=== PATIENT | male | born 1945 | race Caucasian/White ===

== ENCOUNTER 2018-08-05 20:18 | Inpatient (IN) | payer OTHER ==
--- NOTE | 2018-08-05 20:29 | EDPHY ---
H & P Time Seen by Provider: 08/05/18 20:26 HPI/ROS: HPI CHIEF COMPLAINT: Altered mental status. HISTORY OF PRESENT ILLNESS: This is a 73-year-old male, presents emergency room by EMS after was found on somebody's front porch and they were unclear who he was. They contacted police police contacted EMS and EMS evaluated him any appeared to be confused. He states that he thought he was in [place]. He is unable to tell me the year. He does know the president. He is unsure that he was even in [place]. He thought he was in [place]. He cannot explain what he is doing on this person's front porch. Past Medical history: Past Surgical history: His old records here in the emergency room have been reviewed. He has a history of DVT, hypertension, chronic kidney disease, prostate surgery additionally gets dialysis hemodialysis he states Friday in [place]. Here upon arrival to the emergency room I did Greet him, he does appear confused however it is unclear what his baseline is. There is no family at this time. There is no focal neurological deficit on exam. The patient is very pleasant and denies any complaints. ROS REVIEW OF SYSTEMS: Limited due to patient's mental state. Exam Constitutional confused. triage nursing summary reviewed, vital signs reviewed , awake/alert. Eyes normal conjunctivae and sclera, EOMI, PERRLA. HENT normal inspection, atraumatic, moist mucus membranes, no epistaxis, neck supple/ no meningismus, no raccoon eyes. Respiratory clear to auscultation bilaterally, normal breath sounds, no respiratory distress, no wheezing. Cardiovascular rate normal, regular rhythm, no murmur, no edema, distal pulses normal. Gastrointestinal soft, non-tender, no rebound, no guarding, normal bowel sounds, no distension, no pulsatile mass. Genitourinary no CVA tenderness. Musculoskeletal right upper extremity arm AV fistula. no midline vertebral tenderness, full range of motion, no calf swelling, no tenderness of extremities , no meningismus, good pulses, neurovascularly intact. Skin pink, warm, & dry, no rash, skin atraumatic. Neurologic alert and oriented x1., moves all 4 extremities equally, motor intact, sensory intact, CN II-XII intact, normal cerebellar, normal vision, normal speech. Psychiatric normal mood/affect. Heme/Lymph/Immune no lymphadenopathy. Differential Diagnosis: Includes but is not limited to in a particular order electrolyte disturbance, infection, dehydration, intracranial bleed, dementia Medical Decision Making: Plan for this patient will try to get contact with his daughter. CT scan head without contrast, basic blood work, electrolytes, and re-evaluate. Re-evaluation: CT scan head without contrast negative for acute bleed. Significant atrophy present. No bleed. Patient's blood work reviewed. Patient has a hemodialysis patient with creatinine 3.1 K is normal. It is noted the patient's troponin is elevated. The patient denies any chest pain or shortness of breath. EKG will be obtained due to elevated truck. The truck may be elevated due to end-stage renal disease. 2129: The daughter is at bedside. She reports that he is not typically this confused and this is a new change in his mental status over the past 2 weeks however this is the worst that she seen him. He is typically not like this. Due to this the plan will be for admission for altered mental status. Daughter reports that is not typically have any dementia. I spoke with the hospitalist 2129 Dr. Whelan Who agrees to admit Updated family/patient. agree for admission. Observation overnight. 2138: Given the patient had elevated troponin EKG was obtain at time 9:34 p.m.. The patient had no chest pain or shortness of breath and no chest complaints. He was here for confusion. Unfortunately his EKG does show an ST elevation MO with acute STEMI in V2 V3 V4 V5. This considering a LAD occlusion or an anterior ST-elevation MO. I do not see reciprocal significant ST depression. After seeing this EKG is elevated troponin I did go and asked him again if he was having any chest pain or shortness of breath and again he denies this. He is resting comfortably. He states he has no complaints but is noted that he is confused. Given his EKG indicating an ST elevation MO the cardiac catheterization team is been activated. Interventional cardiology has been activated. The patient received full-dose aspirin, nitroglycerin, morphine, 2 large-bore IVs, patient be prepped for cardiac catheterization. Of note this patient arrived to the emergency room for confusion. Had no chest pain or shortness of breath. An EKG was obtained due to the elevated troponin in the setting of a dialysis patient. The patient's EKG concerning for ST elevation. After reviewing this EKG I did re-evaluate him and he again complains of no chest pain or shortness of breath. Plan for cardiac catheterization. Updated patient he agrees. Updated family and they agree. Critical Care: Total Critical Care Time Spent Managing this Patient: 65 Minutes. This time was spent Exclusively with this patient. This Care was exclusive of procedures. The Organ System/life at risk was STEMI This Patient was in Critical Condition because STEMI 2204: Dr. Torrez here to evaluate patient. 2229: We were able to obtain an EKG from [facility] with has a very similar morphology with this ST elevation in V2 V3 V4 V5 with Q-waves. This is indicating this is most likely an old ST elevation MO. Given the EKG is very similar to the previous EKG Dr. Torrez has evaluated the patient at bedside. The patient again does not have chest pain or shortness of breath. Given the EKG is similar to previous EKG he may not go to cardiac catheterization emergently. This may be an old infarct. 7: Spoke with Dr. Torrez, he has seen and evaluated patient. Does not feel the patient needs to go emergently to botany laboratory assistant for ST elevation MO. This has anterior Q-waves concerning for older involving infarct. The patient has no chest pain. He would like the patient admitted the hospital service, serial cardiac markers , echocardiogram. Close telemetry monitoring overnight. Additionally the patient is confused will continue work up. Spoke with the hospitalist service Dr. Morales. Agrees to admit. At this time no indication for emergent cardiac catheterization. Patient is not having chest pain. ST-elevation appears to be old. With Q-waves. Cardiology consult Echocardiogram stat pending. Recommend serial troponins. Recommend telemetry monitoring. Updated family agree with plan. Source: Patient, EMS - Medical/Surgical History Hx Diabetes: No - Social History Smoking Status: Never smoked Constitutional: Initial Vital Signs Temperature (C) 37 C 08/05/18 20:31 Heart Rate 106 H 08/05/18 20:31 Respiratory Rate 18 08/05/18 20:31 Blood Pressure 138/90 H 08/05/18 20:31 O2 Sat (%) 95 08/05/18 20:31 O2 Delivery Mode Room Air Allergies/Adverse Reactions: No Known Allergies Allergy (Verified 08/06/18 09:46) Home Medications: Medication Instructions Recorded Gabapentin [Neurontin 100 MG (*)] 100 mg PO HS PRN 08/06/18 amLODIPine BESYLATE [Norvasc 5 mg 5 mg PO DAILY 08/06/18 (*)] Medical Decision Making - Data Points Laboratory Results: Laboratory Results 08/05/18 20:25 08/05/18 20:25 Medications Given: Heparin Sodium (Porcine) (Heparin Injection) 0 unit IVP PRN PRN PRN Reason: re-Boluses required by protcol Stop: 02/02/19 10:51 Last Admin: 08/06/18 14:37 Dose: 5,000 units Ceftriaxone Sodium/Dextrose (Rocephin 1 Gm (Premix)) 50 mls @ 100 mls/hr IV DAILY MAGGI PRN Reason: Protocol Stop: 09/05/18 08:59 Last Admin: 08/06/18 08:07 Dose: 50 mls Heparin Sodium (Porcine) (Heparin 50 Units/Ml (Premix)) 500 mls @ 0 mls/hr IV CONT MAGGI; Per Protocol PRN Reason: Protocol Stop: 02/02/19 10:59 Last Admin: 08/06/18 14:38 Dose: 500 mls Nitroglycerin (Nitro-Bid 2%) 1 inch TP Q6H MAGGI Stop: 02/02/19 14:59 Last Admin: 08/06/18 15:56 Dose: 1 inch Discontinued Medications Amlodipine Besylate (Norvasc) 5 mg PO DAILY [facility] Stop: 02/02/19 11:14 Last Admin: 08/06/18 14:38 Dose: Not Given Aspirin (Aspirin) 325 mg PO EDNOW ONE Stop: 08/05/18 22:10 Last Admin: 08/05/18 22:10 Dose: 325 mg Aspirin Buffered (Aspirin Ec) 325 mg PO ONCALL ONE Stop: 08/06/18 12:02 Last Admin: 08/06/18 12:18 Dose: 325 mg Diazepam (Valium) 5 mg PO ONCALL ONE Stop: 08/06/18 12:02 Last Admin: 08/06/18 14:01 Dose: Not Given Diphenhydramine HCl (Benadryl) 25 mg PO ONCALL ONE Stop: 08/06/18 12:02 Last Admin: 08/06/18 12:18 Dose: 25 mg Famotidine (Pepcid) 20 mg PO ONCALL ONE Stop: 08/06/18 12:02 Last Admin: 08/06/18 12:18 Dose: 20 mg Heparin Sodium (Porcine) (Heparin Sc Injection) 5,000 unit SC Q8 MAGGI Stop: 02/02/19 05:59 Last Admin: 08/06/18 06:09 Dose: 5,000 unit Nitroglycerin (Nitrostat) 0.4 mg SL ONCE ONE Stop: 08/05/18 22:10 Last Admin: 08/05/18 21:55 Dose: 0.4 mg Potassium Chloride (Potassium Chloride Oral Liquid) 20 meq PO ONCE ONE Stop: 08/05/18 23:11 Last Admin: 08/06/18 01:54 Dose: Not Given Potassium Chloride (Klor-Con) 40 meq PO ONCE ONE Stop: 08/06/18 06:01 Last Admin: 08/06/18 06:09 Dose: 40 meq Point of Care Test Results: Chemistry 08/05/18 21:09 POC Troponin I 1.13 ng/mL H ng/mL (0.00-0.08) Departure - Departure Disposition: [facility] Acute Clinical Impression: Elevated troponin Altered mental status Qualifiers: Altered mental status type: unspecified Qualified Code(s): R41.82 - Altered mental status, unspecified Condition: Serious
[2018-08-05 20:39] LABS: PLATELET COUNT 340 10^3/uL (150-400)
[2018-08-05] MEDS ORDERED: ASPIRIN 325 MG TAB ONE (21:48)
[2018-08-05] MEDS ORDERED: NITROGLYCERIN 0.4 MG BTL SL ONE ×2 (21:49→22:09)
[2018-08-05] MEDS ORDERED: ASPIRIN 325 MG TAB PO ONE (22:09)
[2018-08-05] MEDS ORDERED: IOPAMIDOL (ISOVUE-370) 150 ML BTL IV ONE (22:10)
[2018-08-05] MEDS ORDERED: MIDAZOLAM 2 MG/2 ML VIAL ONE (22:10)
[2018-08-05] MEDS ORDERED: fentaNYL 100 MCG/2 ML INJ ONE (22:10)
[2018-08-05] MEDS ORDERED: LIDOCAINE 1% 300 MG/30 ML SDV ONE (22:10)
[2018-08-05] MEDS ORDERED: ATROPINE SULFATE 1 MG/10 ML SYR ONE (22:13)
[2018-08-05] MEDS ORDERED: EPINEPHrine 1 MG/10 ML SYR IVP ONE (22:13)
[2018-08-05] MEDS ORDERED: BIVALIRUDIN 250 MG/5 ML VIAL IV ONE (22:13)
[2018-08-05] MEDS ORDERED: ONDANSETRON DISINTEGRATING 4 MG TAB PO PRN (23:06)
[2018-08-05] MEDS ORDERED: ACETAMINOPHEN 325 MG TAB PO PRN (23:06)
[2018-08-05] MEDS ORDERED: ONDANSETRON 4 MG/2 ML VIAL IVP PRN (23:06)
[2018-08-05] MEDS ORDERED: POTASSIUM CL 20 MEQ/15 ML UDCUP PO ONE (23:10)
[2018-08-06] MEDS ORDERED: ALBUTEROL 3 ML DEYVIAL IH PRN (01:45)
--- NOTE | 2018-08-06 02:12 | HOSPPROG ---
Hospitalist Progress Note Assessment/Plan: Hospitalist night float note Notified by RN regarding patient slightly declined H&H. Chart was briefly reviewed and case was discussed at sign out with Dr. Campbell. 73-year-old gentleman presents with fatigue and dyspnea found to have hyper leukocytosis and severe anemia. 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 He was seen in the emergency department by correctional officer lieutenant Dr. Carvalho. As reported to me patient had a discussion with Dr. Carvalho regarding findings of warm antibodies on type and screen and option for on cross match blood. Patient remains normotensive and mildly tachycardic. He did have a episode of tachycardia to the 140s while standing to void at bedside. Send out pending with [facility] and notified that units of blood will still be several hours out. I went to bedside to discuss status of blood and repeat hemoglobin with patient and his . They would prefer to wait so long as patient remains stable for the appropriate type and cross blood. Will monitor patient's telemetry status closely as well as vital signs. Objective: Vital Signs Temp Pulse Resp BP Pulse Ox 37 C 89 16 122/70 H 96 08/05/18 20:31 08/05/18 23:25 08/05/18 23:25 08/05/18 23:25 08/05/18 23:25 08/04/18 08/05/18 08/06/18 05:59 05:59 05:59 Output Total 750 Balance -750 ICD10 Worksheet Patient Problems: Problems Problem Status Onset Altered mental status Acute Elevated troponin Acute
--- NOTE | 2018-08-06 03:00 | GHP ---
DATE OF ADMISSION: 08/05/2018 SOURCE: Patient provides history, is a fair historian. EMR was reviewed, and case discussed with ED provider as well as Dr. Torrez of Cardiology. CHIEF COMPLAINT: Confusion. HISTORY OF PRESENT ILLNESS: This is a pleasant 73-year-old gentleman with past medical history significant for CKD stage 5, on dialysis Friday, Friday, Friday; HTN; BRETT on CPAP; history of CHF and CAD; asthma; history of prostate cancer status post prostatectomy who presents to the emergency department today after law enforcement was called as patient was found on a stranger's front porch. Police subsequently contacted EMS as patient appeared quite confused. He was not sure where he was or how he arrived there. He thought he was in [place] at the time where he lives. By report from the ED provider, patient's daughter recently moved in with him to assist him with his ADLs. Apparently, patient had been having some memory deficits, progressively worsening over the last 2 weeks that the daughter reported. Patient denies any recent head injuries known. He reports he has had some ongoing difficulties remembering names, but denies losing track of items or feeling as though he has lost chunks of time. He denies any headache, changes in vision, numbness, tingling, or focal deficits. Patient denies any chest pain, shortness of breath, fevers, chills, or any other complaints. Patient does undergo dialysis Friday, Friday, Friday. His current technical support coordinator is Dr. Lemon. He was previously followed by Dr. Bhakta. He denies any lower extremity edema, weight changes, or shortness of breath. Per review of outside records from [place], patient was admitted in January of 2018 for complaints of dyspnea. He was found to have fluid overload. Additionally, patient was noted to have elevated troponin, underwent echocardiogram that was consistent with an anterior apical infarct as well as noted some ST elevations at that time. It was felt that his troponin elevation was related to volume overload, CHF, pulmonary edema; however, there was no commentary in available records regarding the ST-elevation or cardiology consult. He did undergo an echocardiogram that showed an EF of 30% to 35% with thinning and akinesis in apex, apical septal segments consistent with old infarct, and a grade 1 diastolic dysfunction. REVIEW OF SYSTEMS: 10 systems reviewed. SYSTEM REVIEW: Patient complains of some urinary retention for which he straight caths intermittently. He is still able to void and does make urine daily. Remainder of 10 systems negative , except as above. ALLERGIES: No known drug allergies. HOME MEDICATIONS: As per EMR as patient does not recall. Amlodipine 2.5 mg p.o. daily. Sodium bicarb 650 mg p.o. b.i.d. Fish oil 1000 mg p.o. daily. [place] 5/325 one to two tabs p.o. q.6 hours p.r.n. Gabapentin listed 400 mg p.o. at h.s. Lasix 40 mg p.o. Friday, Friday, Friday. Vitamin D 2000 units p.o. daily. Valium 10 mg p.o. q.6 hours p.r.n. Zyrtec 10 mg p.o. daily. Coreg 6.25 mg p.o. b.i.d. with meals. Calcitriol 0.25 mcg p.o. Friday, Friday, Friday. PAST MEDICAL HISTORY: Reviewed with patient as well as review of available outside records. Significant for CKD stage 5 on dialysis Friday, Friday, Friday; benign essential hypertension; asthma; hard of hearing with requirement for hearing aids; history of prostate cancer, status post prostatectomy, now with intermittent urinary retention; BRETT on CPAP; CHF with EF of 30%; DVT; history of CAD. PAST SURGICAL HISTORY: Significant for prostate surgery, hernia, AV fistula in the right arm, cholecystectomy, appendectomy with lysis of adhesion, history of pelvic abscess drainage. FAMILY HISTORY: Patient reports his mother and father in their mid 90s and healthy. Denies any known diabetes, dementia. Does not know medical history of his siblings. 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 He lives at home, now with his daughter. He does not smoke or utilize any illicit drugs or marijuana. He reports rare alcohol intake. COR STATUS: At this time is full. PHYSICAL EXAM: VITAL SIGNS UPON ARRIVAL TO THE EMERGENCY DEPARTMENT: Blood pressure 138/90, heart rate 106, respiratory rate 18, O2 sat 95% on room air, temperature of 37. CURRENT VITALS AVAILABLE: Blood pressure 122/70, heart rate 89, respiratory rate 16, O2 sat 96% on room air. GENERAL: No acute distress. Pleasant, elderly adult gentleman is lying quietly in bed. HEAD: Normocephalic, atraumatic. EYES: Extraocular muscles are grossly intact. Pupils equal, round, decreased reactivity to light bilaterally but symmetric. No scleral icterus or conjunctival injection. ENT: Mucous membranes appear slightly dry. No oropharyngeal erythema or exudates. Dentition in fair condition. NECK: Supple. Trachea midline. CV: Regular rate and rhythm. Patient has a 2/6 to 3/6 systolic murmur. RESPIRATORY: Lungs are clear to auscultation bilaterally. Bases slightly diminished with decreased inspiratory effort. No wheezes, rales, or rhonchi appreciated. ABDOMEN: Obese, soft, nontender to palpation. No rebound, guarding, or masses appreciated. Patient has multiple surgical scars that are well healed. Positive bowel sounds. Nondistended. : Normal external male genitalia. No Prather catheter in place. No suprapubic tenderness to palpation. EXTREMITIES: No cyanosis, clubbing, or edema is appreciated. Patient has chronic lower extremity skin changes present. 1+ pedal pulses bilaterally and symmetric. NEURO: Grossly nonfocal. No facial drooping. Cranial nerves 2 through 12 intact and symmetric bilaterally. Patient awake, alert, and oriented to person and place at this time. He is not oriented to date or month. He is oriented to current president but does require some time to think who the most recent president is. The patient notes that he does not recall events leading up to his hospital stay at this time. PSYCH: Patient is pleasant. He is cooperative. He does have some memory deficits, and when asked various questions, and he is not aware of the immediate answer, patient will try to change the subject. He is otherwise not agitated and cooperative. In good spirits. LABORATORY STUDIES: WBC 9.51, H and H are 12.3 and 37.4, MCV 89.3, platelet count of 340, neutrophil percent 78.0. VBG: Lactic acid 1.2. Sodium is 138, potassium 3.2, chloride 94, CO2 is 30, anion gap 14, BUN 16, creatinine 3.1, estimated GFR 20, glucose 113, calcium is 9.6, phosphorus 2.7, magnesium 1.7. Tejcd-rn-bydi troponin is 1.13. TSH is 0.375. Tox screen: Alcohol is less than 10. UA and U-tox are pending. EKG was reviewed by me. Sinus tach in the 100s. QTc 458. Patient with ST elevations in V3, 4, 5 and 6. Q-waves in the anterior leads. LVH. Nonspecific T-wave changes in the inferior leads. CT head showing moderately advanced senescent features. No acute intracranial abnormality identified. Complete opacification left maxillary sinus. Chest x- ray: Mild cardiomegaly with peribronchial thickening and left basilar subsegmental atelectasis versus a minimal infiltrate. ASSESSMENT AND PLAN: Pleasant 73-year-old gentleman with a history of chronic kidney disease 5 on hemodialysis Friday, Friday, Friday; asthma; hypertension ; obstructive sleep apnea; congestive heart failure with ejection fraction of 30 %; deep venous thrombosis; history of evidence of infarct who presents to the emergency department today with confusion. 1. Altered mental status. Will need to further discuss with patient's family tomorrow. Given available data, potential for progressive memory loss and dementia versus less likely an acute encephalopathy due to metabolic reasons. Laboratory studies at this time do not indicate any infectious process, but there is a UA pending as well as a U-tox pending. No evidence of focal deficits consistent with acute cerebrovascular accident. Patient's neurologic exam at this time is within normal limits, except for his memory deficits. Will request Speech Therapy assist with a cognitive evaluation. Patient is a little tangential and does try to change the subject when it appears he is asked questions he is not able to answer. Patient's home medicine list does note gabapentin, Valium, which potentially could be contributing to some confusion, so will hold off on any potential sedatives. Additionally, patient' s EKG changes and elevated troponin appear to be chronic in nature. Case was discussed with Dr. Torrez with cardiology service. Will plan to repeat laboratory studies in the morning. Follow up on TFTs. Patient without any focal deficits. Consider additional brain imaging tomorrow as per day team pending reassessment of laboratories and examination. 2. Elevated troponin and ST elevations, which appear to be chronic by review of previous records. Patient denies any chest pain or dyspnea. Will plan to trend enzymes. I discussed with Dr. Torrez. Patient did undergo a stat echocardiogram in the emergency department. Ejection fraction is reported to appear to be slightly decreased from that completed in January, and similarly noted anteroapical infarct and wall motion abnormalities appear are persistent, without any acute changes noted. 3. Hypokalemia, mildly decreased. Patient's home medication list notes Lasix. Will hold off on diuretics for now. Patient will receive oral replacement. 4. Low TSH, slightly diminished. Will check T3, T4. 5. Anemia, likely related to chronic kidney disease. Patient without any evidence of active bleeding. Will continue to monitor. 6. Chronic medical issues: a. Chronic kidney disease stage 5. Patient just underwent dialysis in the morning. If he should stay additional length of time, further discussion with Nephrology for consultation. Will monitor patient's laboratory studies in the morning and electrolyte panel. b. Benign essential hypertension. Blood pressures at this time are stable. Will need to verify patient's home medication list and can resume. c. Obstructive sleep apnea on continuous positive airway pressure. Will need to clarify continuous positive airway pressure usage. Nocturnal oxygen for tonight. d. Asthma without exacerbation. Albuterol as needed. e. Hard of hearing. Patient reports he forgot his hearing aids. It does make interviewing slightly difficult but will see if family can bring the patient's hearing aids. f. Systolic and diastolic congestive heart failure with ejection fraction of less than 30%. Does not appear decompensated at this time. Will monitor patient's fluid status closely. He received 500 cc of fluid in the emergency department. Will hold off additional intravenous fluids. Patient does continue to make urine, so will monitor fluids, in and out status closely. g. History of deep venous thrombosis. Patient will be placed on heparin while hospitalized. h. Chronic urinary retention. Patient's postvoid residual is greater than 400. Patient does report that he straight caths. He is able to void. Straight cath as needed. 7. Fluids, electrolytes, and nutrition: Saline lock intravenous, status post 500 cc in the emergency department. Electrolyte monitoring as noted above. Renal diet ordered. 8. Prophylaxis: Heparin. Sequential compression devices as tolerated. 9. COR status: Full. 10. Disposition: Patient admitted to observation status to the PCU in ICU overflow for additional monitoring, repeat laboratory studies, and workup of patient's confusion. /[id number]/MODL MTDD
[2018-08-06 05:15] LABS: PLATELET COUNT 276 10^3/uL (150-400)
[2018-08-06 05:27] LABS: CREATINE KINASE 75 IU/L (0-224)
[2018-08-06] MEDS ORDERED: HEPARIN 5,000 UNIT/0.5 ML INJ SC SCH (06:00)
[2018-08-06] MEDS ORDERED: POTASSIUM CL 20 MEQ TAB PO ONE (06:00)
--- NOTE | 2018-08-06 08:25 | GCON ---
DATE OF CONSULTATION: 08/05/2018 REFERRING PHYSICIAN: Ramesh Medellin MD CHIEF COMPLAINT: We have been asked by Dr. Medellin to evaluate the patient as a cardiac alert. HISTORY OF PRESENT ILLNESS: History of present illness is obtained from the patient, the patient's d aughter, and the medical record. The patient is a limited historian with short-term memory loss and acute confusion. The patient's daughter has been living with him for the last month and is aware of his recent medical history; however, prior to this time, patient was not actively involved in his med [facility] care. The patient's medical record is somewhat limited as most of his medical care has taken pl linh in the outpatient setting, as well as at [facility]. Patient was found at a local residence sitting on the porch. The residents of the house did not recognize the patient and called police. When please arrive, they found him to be acutely confused and called EMS. EMS brought the p atient to the emergency department for further evaluation. In the emergency department, workup for acute delirium was initiated. Lab work was performed demonst rating a mildly elevated troponin, and this subsequently triggered an EKG demonstrating an anterosept al myocardial infarction with ST-segment elevations in leads V2 through V5. We are consulted to help in the further management of the patient. In talking with the patient, he denies symptoms of chest pain, shortness of breath, orthopnea, and PN D. There are no symptoms of palpitations, syncope, or presyncope. We were able to obtain an old EKG from [facility] dated 02/02/2018. That EKG demonstrated an anteroseptal [place] with ST-se gment elevation in leads V2 through V5. Echocardiogram from that time demonstrated an old anterosept al myocardial infarction with an ejection fraction of 30% to 35%. PAST MEDICAL HISTORY: 1. DVT. 2. Hypertension. 3. Chronic kidney disease. 4. Prostate surgery. 5. Hemodialysis catheter placement. MEDICATIONS: 1. Norvasc 5 mg daily. 2. Calcitriol 0.25 mcg daily. 3. Coreg 6.25 mg b.i.d. 4. Vitamin D3 2000 units daily. 5. Fish oil. 6. ProAir. 7. Sodium bicarbonate 1300 mg daily. ALLERGIES: No known drug allergies. 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 He is currently living wit h his daughter for the last month. He does not smoke and denies problems with alcohol. FAMILY HISTORY: Noncontributory. REVIEW OF SYSTEMS: Somewhat limited given patient's altered mental status. Family reports increased sleep and increased confusion over the last 2 weeks. The patient has noted to have had chills, but no other specific complaints noted. PHYSICAL EXAMINATION: GENERAL: The patient is resting in bed. He does not appear to be in acute di stress. VITAL SIGNS: Temperature is afebrile. Pulse is 95, blood pressure 128/75, respiratory rate is 15, SaO2 is 96% on 2 L nasal cannula. HEENT: Normocephalic, atraumatic. Extraocular muscles in tact. NECK: Positive JVD. No bruits. LUNGS: Clear to auscultation bilaterally. CARDIOVASCULAR: Regular rate and rhythm. S1, S2. Grade 3/6 holosystolic murmur is noted at the left sternal border . ABDOMEN: Soft, nontender. Normoactive bowel sounds. No hepatosplenomegaly noted. Aorta could n ot be adequately palpated. EXTREMITIES: No clubbing, cyanosis, or edema. SKIN: There is evidence of stasis changes on the pretibial surface. NEURO: Patient is disoriented to place and time. DIAGNOSTIC DATA: White blood cell count is mildly elevated at 9.51, hemoglobin is 12.3, hematocrit i s 37.4, platelet count is 340. Sodium 138, potassium 3.2, chloride 94, CO2 is 30, BUN 16, creatinine 3.1, glucose is elevated at 113. [id number] troponin is 1.13. EKG demonstrates sinus rhythm, left atrial enlargement, anteroseptal infarct with evidence of aneurys mal formation. ASSESSMENT/PLAN: The patient is a 73-year-old gentleman with: 1. Acute delirium. Patient presents with acute delirium. The etiology of his delirium is not entir huan clear at this time. Will defer further workup to the hospitalist service. 2. Elevated troponin. The patient has a history of a previous anteroseptal myocardial infarction by EKG, as well as echocardiogram. His current EKG is not significantly changed from previous. His tr oponin is mildly elevated at 1.13; however, patient denies symptoms consistent with angina at this ti me. Would favor a more conservative approach in this setting. We will plan on obtaining an echocard iogram, as well as serial cardiac enzymes, and following the patient. If he were to deteriorate or d evelop symptoms consistent with angina, would consider cardiac catheterization. /[id number]/MODL
[2018-08-06] MEDS ORDERED: HEPARIN/DEXTROSE 500 ML IV SCH (09:30)
[2018-08-06] MEDS ORDERED: HEPARIN 10,000 UNIT/10 ML MDV (1,000 UNIT/ML) IVP PRN (09:30)
--- NOTE | 2018-08-06 11:07 | HOSPPROG ---
Hospitalist Progress Note Assessment/Plan: DIAGNOSES: * ST-elevation myocardial infarction * acute hypotension, resolved; unclear if this was due to dialysis or due to his heart episode * acute confusional episode of delirium, resolved * pyuria, uncertain if this represents infection or other inflammatory process * end-stage renal disease on dialysis * anemia of renal disease This patient has acute elevation of troponin from 1-4 overnight, CPK is elevated with positive MB fraction, any presented with acute confusion and hypotension. This could all be an acute coronary syndrome event, could be potentially related to hypotension either from dialysis or less likely urinary infection, leading to both confusion and myocardial injury in the setting of underlying coronary disease. Either way I recommended to the patient that he have angiography to further assess his coronaries as well as echocardiogram to assess his aortic valve. I reviewed these with Dr. Shane Ring who will see the patient today. The patient initially was quite resistant to these ideas in fact was stating he was going to leave the hospital AMA, but I spent extended time at the bedside with the patient reviewing our findings and the risk of further myocardial injury with heart failure stroke or other consequences. PLANS: * Continue NPO for the moment * Dr. Ring will see the patient regarding coronary angiography * Echocardiogram * Avoid medications with significant MEDICAL COMMUNICATION SPECIALIST side effects Patient seen by me today on hospitals rounds as well as multidisciplinary rounds. I reviewed the patient's situation in detail today with doctors Shane Ring and Geovany Judge I spent greater than 45 min at the bedside today with the patient on my 1st visit and anticipate subsequent visits later in the day today SUBJECTIVE: Patient denies any chest pain this morning States he feels comfortable overall OBJECTIVE Vitals reviewed: Blood pressure is notably improved, stable pulse respirations and normal temperature is Land Manager, my review: Sinus rhythm Exam: alert oriented with much better mentation today, able to carry out very normal conversation skin warm dry color ok resps not labored lungs clear BSs heart regular abd soft nondistended nontender, bowel sounds present limbs warm, no edema iv site ok Lab data: Troponin now elevated to greater than 4; CK-MB positive Basic met panel with creatinine at 3.5 but good electrolytes and is not acidotic White blood cell count improved, hemoglobin at 10 which I presume is chronic related to his end-stage renal disease Microbiology data: Urine culture pending with no growth to date I reviewed the patient's EKG from the ER which shows sinus rhythm and with severe acute ST segment elevations anterior lateral chest leads Objective: Vital Signs Temp Pulse Resp BP Pulse Ox 37 C 89 12 121/78 H 97 08/05/18 20:31 08/06/18 10:00 08/06/18 10:00 08/06/18 10:00 08/06/18 10:00 Laboratory Results 08/06/18 04:45 08/06/18 04:45 08/05/18 08/06/18 08/07/18 06:59 06:59 06:59 Intake Total 100 Output Total 750 Balance -650 ICD10 Worksheet Patient Problems: Problems Problem Status Onset Altered mental status Acute Elevated troponin Acute
[2018-08-06] MEDS ORDERED: GABAPENTIN 100 MG CAP PO PRN (11:15)
[2018-08-06] MEDS ORDERED: amLODIPine BESYLATE 5 MG TAB PO SCH (11:15)
--- NOTE | 2018-08-06 11:20 | ECHO ---
[email or web address] [address] [address] Main: [phone] Fax: Transthoracic Echocardiogram Name: SHERRY GREY MR#: [id number] Study Date: 08/05/2018 Study Time: 11:10 PM Date of : 1945 Age: 73 year(s) Height: 182.9 cm (72 in.) Weight: 84.82 kg (187 lb.) BSA: 2.07 m2 Gender: Male Examination: Echo Indication: stat stemi v renal Image Quality: Adequate Contrast: Requested by: Ramesh Garcia BP: / Heart Rate: Rhythm: Indication: stat stemi v renal Procedure Staff Rug Cleaner: Cat Hernandez [facility] Reading Physician: Requesting Provider: Conclusions: Dilated left ventricle. Concentric LV hypertrophy. The ejection fraction is visually estimated to be 20 %. Regional wall motion abnormality noted. Reduced LV function. Apical, septal, anterior, inferior hypokinesis. Normal RV function. Mitral regurgitation may be mild to moderate - eccentric jet. Mild aortic valve regurgitation is present. Mild calcific aortic valve stenosis. Mild to moderate tricuspid valve regurgitation. The pulmonary artery pressure is moderately to severely increased. Right ventricular systolic pressure measures 59mmHg. There is no previous echocardiogram for comparison. Measurements: Chambers Valvular Assessment AV/MV Valvular Assessment TV/PV Normal Normal Normal Name Value Range Name Value Range Name Value Range Ao Mere (2D): 3.7 cm (1.4 cm-2.6 AV Vmax: 2.54 m/s (1 m/s-1.7 TR Vmax: 3.69 mm/s ( - ) cm) m/s) TR PGmax: 54 mmHg ( - ) IVSd (2D): 1.7 cm (0.6 cm-1.1 AV maxP mmHg ( - ) syst. PAP: 59 mmHg ( - ) cm) AV meanP mmHg ( - ) PV Vmax: 0.60 m/s (0.6 m/s-0.9 LVDd (2D): 5.5 cm (4.2 cm-5.9 LVOT Vmax: 0.74 m/s (0.7 m/s-1.1 m/s) cm) m/s) PV PGmax: 1 mmHg ( - ) LVDs (2D): 4.5 cm (2.1 cm-4 JOLIE (Vmax): 1.2 cm2 ( - ) cm) JOLIE (VTI): 1.1 cm ( - ) LVPWd (2D): 1.5 cm (0.6 cm-1 MV E Vmax: 0.85 m/s ( - ) cm) MV A Vmax: 1.01 m/s ( - ) LVOTd 2.3 cm 2.3 cm mm MV E/A: 0.84 ( - ) LVEF (BP): 20 % (>=55 %) MV PHT: 0.045 s ( - ) Patient: SHERRY GREY Study Date: 08/05/2018 Page 1 of 2 11:10 PM Visual EF: 20 % MVA (PHT): 4.9 s ( - ) Continued Measurements: Chambers Valvular Assessment AV/MV Valvular Assessment TV/PV Name Value Name Value Name Value LADs: 3.8 cm MV DecTime: 151 m/s CVP (est.): 5 mmHg LADs Lon.3 cm MV E/E' Septal: 12.90 LA Area: 27.2 cm2 MV E/E' Lateral: 8.90 LA Volume: 76 ml LA Volume Index: 36.7 ml/m2 RA Area: 17.0 cm2 Additional Vessels Name Value Ao Ascendin.1 cm Inferior Vena Cava: 1.5 cm Findings: Left Ventricle: Dilated left ventricle. Concentric LV hypertrophy. The ejection fraction is visually estimated to be 20 %. Regional wall motion abnormality noted. Grade 2 diastolic dysfunction (pseudonormalized LV filling pattern). Reduced LV function. Apical, septal, anterior, inferior hypokinesis. Right Ventricle: Normal size right ventricle. Normal RV function. Left Atrium: The left atrium is mildly dilated. Right Atrium: The right atrium is normal in size. Mitral Valve: The mitral valve is normal in appearance and function. Mild mitral valve leaflet calcification is present. Mitral regurgitation may be mild to moderate - eccentric jet. Aortic Valve: The aortic valve is tri-leaflet. Aortic sclerosis is present. Mild aortic valve regurgitation is present. Mild calcific aortic valve stenosis. Tricuspid Valve: The tricuspid valve is normal in appearance and function. Mild to moderate tricuspid valve regurgitation. The pulmonary artery pressure is moderately to severely increased. Right ventricular systolic pressure measures 59mmHg. Pulmonic Valve: The pulmonic valve is normal in appearance and function. There is no pulmonic regurgitation seen. Aorta: The aorta is normal. Normal size aortic root measuring 3.7 cm. Normal size ascending aorta measuring 3.1 cm. IVC: The IVC is normal sized. Pericardium: No pericardial effusion. No pleural effusion. (No Signature Object) Patient: SHERRY GREY Study Date: 08/05/2018 Page 2 of 2 11:10 PM [id number]
[2018-08-06 11:21] LABS: PLATELET COUNT 265 10^3/uL (150-400)
[2018-08-06] MEDS ORDERED: LIDOCAINE 1% 300 MG/30 ML SDV ONE (11:38)
[2018-08-06] MEDS ORDERED: fentaNYL 100 MCG/2 ML INJ ONE ×2 (11:38→12:59)
[2018-08-06 11:39] LABS: INR 1.23 (0.83-1.16); PROTIME(PATIENT) 15.7 SEC (12.0-15.0)
[2018-08-06] MEDS ORDERED: IOPAMIDOL (ISOVUE-370) 150 ML BTL IV ONE (11:39)
[2018-08-06] MEDS ORDERED: MIDAZOLAM 2 MG/2 ML VIAL ONE (11:39)
[2018-08-06 11:42] LABS: CREATINE KINASE 76 IU/L (0-224)
--- NOTE | 2018-08-06 11:43 | SOAPPROG ---
[facility] Progress Note Assessment/Plan: Assessment: 1. Ischemic cardiomyopathy. Patient it appears has had an old myocardial infarction in the past however this may have been a recent event as well. He he is asymptomatic and otherwise feeling well he continues to have ST- elevation. This point discussed our options conservative versus invasive therapy is agreed to invasive therapy cardiac catheterization and possible PCI will be done this afternoon. The Dr. Judge nephrology is aware. Patient is not having ongoing symptoms at this time. 2. Chronic renal insufficiency patient on dialysis for last 4-6 months. Apparently is doing well at dialysis. Plan: 1. Cardiac catheterization with possible PCI. Consent to be signed. 08/06/18 11:43 Subjective: Patient is doing better today. I reviewed the findings of last evening with the patient and Dr. Torrez. Echocardiogram shows and ischemic cardiomyopathy. Apparently has had an old anterior infarct by reports I have not seen the actual echoes from [place] from earlier this spring. Nonetheless his troponin is for he feels well today he is not having ongoing chest pain palpitations syncope. At this point we discussed our options of conservative versus invasive management. After talked about the procedure risks, patient has agreed to progress with coronary angiogram if necessary PCI. This was all discussed with Dr. Judge the acid dumper will be covering as well. Patient remains asymptomatic as far as chest pain palpitations syncope. At least to me patient denies any known history of prior cardiac cast stents or bypasses. Objective: Vital Signs Temp Pulse Resp BP Pulse Ox 37 C 89 12 121/78 H 97 08/05/18 20:31 08/06/18 10:00 08/06/18 10:00 08/06/18 10:00 08/06/18 10:00 Laboratory Results 08/06/18 11:12 08/06/18 04:45 08/05/18 08/06/18 08/07/18 05:59 05:59 05:59 Intake Total 100 Output Total 750 Balance -650 PT 15.7 SEC (12.0-15.0) H 08/06/18 11:12 INR 1.23 (0.83-1.16) H 08/06/18 11:12 Physical Exam - Physical Exam Respiratory: lungs clear Cardiac/Chest: normal peripheral pulses, systolic murmur, No edema, No JVD ICD10 Worksheet Patient Problems: Problems Problem Status Onset Altered mental status Acute Elevated troponin Acute
[2018-08-06] MEDS ORDERED: ASPIRIN EC 325 MG TAB PO ONE (12:01)
[2018-08-06] MEDS ORDERED: FAMOTIDINE 20 MG TAB PO ONE (12:01)
[2018-08-06] MEDS ORDERED: TEMAZEPAM 15 MG CAP PO PRN (12:01)
[2018-08-06] MEDS ORDERED: diphenhydrAMINE 25 MG CAP PO ONE (12:01)
[2018-08-06] MEDS ORDERED: NITROGLYCERIN 0.4 MG BTL SL PRN ×2 (12:01→14:01)
[2018-08-06] MEDS ORDERED: DIAZEPAM 5 MG TAB PO ONE (12:01)
[2018-08-06] MEDS ORDERED: ACETAMINOPHEN 325 MG TAB PO PRN (12:01)
[2018-08-06] MEDS ORDERED: NS 1,000 ML IV SCH (12:15)
--- NOTE | 2018-08-06 13:39 | GCON ---
NEPHROLOGY CONSULTATION DATE OF CONSULTATION: 08/06/2018 REFERRING PHYSICIAN: Dr. Ring REASON FOR CONSULTATION: Management of end-stage renal disease. HISTORY OF PRESENT ILLNESS: The patient is a 73-year-old male with a past medical history significan t for end-stage renal disease, hypertension, sensorineural hearing loss, and systolic heart failure w ho now presents with mental status changes and evidence of a non-STEMI. History is obtained from the patient, the medical staff, and medical records from several different systems. I did speak with [facility] patient today. He is only a fair historian. The patient dialyzes on a Friday, Friday, Friday schedule at the [facility] under t he care of Dr. Elba Eason. The patient's dialysis sessions have been going well, and his fist dinesh has been good. His labs have looked good, and his clearances have been okay. There had been rec ent concerns from the patient's daughter, as well as the dialysis staff, of cognitive decline. The p atient has been resistant to further evaluation of this. Relating to the history of present illness, the patient apparently became confused following his dial ysis yesterday. The dialysis run, itself, went fine without any unusual characteristics. The patien t then drove to [place] and became lost. The police were called and ultimately, he was brought to [facility] emergency room. His mental status has since improved; however, his troponin was markedly elevated. An echocardiogram was performed, which showed apical dysfunction and a decreased ejection fraction. I have reviewed his records from outside. In the Care Everywhere section of [facility], there is an echoca rdiogram performed in January, which showed a similar ejection fraction of 35%. It appears that a nuclea r medicine test was ordered, but ultimately never performed. I do not see that his vascularization h as ever been characterized. The patient's end-stage renal disease is not completely known, but is partly related to chronic right hydronephrosis with ureteropelvic junction obstruction. Overall, it was thought that his end-stage renal disease was related to obstructive nephropathy. He does have a history of prostate cancer and is status post prostatectomy. He has had a history of poorly controlled hypertension. He ultimately started dialysis in the summer of 2017. He has done better since initiating dialysis. He has lived alone, but recently has been joined by his daughter and boyfriend. There had been open communicatio ns between the dialysis staff and the family and patient. As related to the above findings, we are a sked by Dr. Ring to assist the patient's renal diagnosis and management. PAST MEDICAL HISTORY: 1. End-stage renal disease, secondary to chronic obstruction. 2. Chronic bladder outlet obstruction. 3. History of prostate cancer. 4. Hypertension. 5. Gout. 6. Sensorineural hearing loss. 7. Secondary hyperparathyroidism. 8. Recent decreased cognition. 9. Known systolic heart failure. SURGICAL HISTORY: 1. Prostatectomy. 2. Herniorrhaphy. 3. AV fistula in right arm. 4. Cholecystectomy. 5. Appendectomy. 6. Pelvic abscess drainage. HOME MEDICATIONS: Amlodipine 5 mg daily, Coreg 6.25 mg b.i.d., Lasix 40 mg b.i.d., calcium carbonate 500 mg t.i.d., calcitriol 0.25 mcg daily, sodium bicarbonate 1300 mg b.i.d., fish oil daily, vitamin D 2000 units daily. FAMILY HISTORY: Noncontributory. 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 He is . He has a past sm oking history. He does not drink alcohol. REVIEW OF SYSTEMS: GENERAL: He denies fevers, chills, or sweats. HEENT: He denies headaches. He denies visual disturbances. He denies rhinitis or sore throat. RESPIRATORY: He denies cough, short ness of breath. CARDIOVASCULAR: He denies chest pain or palpitations. GASTROINTESTINAL: He denies abdominal pain, constipation, or diarrhea. GENITOURINARY: He denies dysuria. He still makes urine . EXTREMITIES: He has some chronic lower extremity edema. NEUROLOGIC: He denies numbness in his f ingers or toes. SKIN: He denies skin rashes. ENDOCRINE: He does not have a history of diabetes or thyroid disease. PHYSICAL EXAM: GENERAL: At time of exam, the patient is alert and oriented. VITAL SIGNS: Temperat ure afebrile. Pulse 85, blood pressure 114/75. HEENT: Eyes: Sclerae clear. Oropharynx clear with dentition in good repair. NECK: No lymphadenopathy or thyromegaly. LUNGS: With rales in both bas es. CARDIOVASCULAR: Regular rate and rhythm without gallops or rubs. ABDOMEN: Nontender. No orga nomegaly. /RECTAL: Deferred. EXTREMITIES: 1+ ankle edema bilaterally. The patient's right uppe r extremity fistula looks good. INTEGUMENT: Generally clear. NEURO: The patient is oriented x3 at the present time. He has no focal findings. LABORATORY STUDIES: White count 8.3, hematocrit 30.4, platelet count 265. Sodium 143, potassium 3.3 , bicarb 29, creatinine 3.5. Troponin 1.13. TSH 4.0. IMPRESSION/PLAN: 1. Congestive heart failure. The patient has evidence of systolic heart failure. It does not appea r he has ever had a vascular evaluation. I agree with having him go for delineation of his coronary anatomy. 2. End-stage renal disease. The patient is on a Friday, Friday, Friday schedule. He is somewhat volume overloaded. He does not require urgent dialysis today. He will be dialyzed on Friday. 3. Anemia. This is stable and within expected range. 4. Hyperthyroidism. The patient's TSH is somewhat suppressed. Additional thyroid studies are pendi ng. 5. Cognitive changes. I have reviewed this with Dr. Elba Eason, his primary substation operator transforming, nicky hospice social worker at the unit, and who is a hospitalist here. The patient has been some what reluctant to have further evaluation of this. We will ask Neurology to consult. 6. Hypertension. The patient's blood pressure was actually low on admission. It is now okay. I wi ll decrease his amlodipine dose slightly. Thank you for allowing us to participate in this gentleman's care. We will continue following closel y with you. /[id number]/MODL
--- NOTE | 2018-08-06 13:46 | PDDXCAT ---
Diagnostic Cath Note - . Date: 08/06/18 Crew Boat Operator: Jhonathan Indication: Patient w angina/susp CAD, cannot be risk stratified by other means , other High-risk criteria on non-invasive testing: severe resting left ventricular dysfunction (LVEF<35%) - Procedure Access: right groin Procedure: left heart catheterization, coronary angiography - Materials Left Heart Cath size: 5F Left Heart Cath materials: JL5.0, JR4.0 - Findings-Left Heart Catheterization LM: 1. mild cad LAD: 1. prox occl post d1....lto l and r to l collats fill lad LCX: 1. prox 80 % and mild 75%...competitve flow in distal cx d from rca RCA: 1. large dominant with r to l collats to cx and lad territories Complications: none Estimated blood loss: <50ml Closure method: Angioseal Assessment: 1. severe cad involving a chronic occl lad and tandem cx lesions..there is known chronic lvef of 25% (no h/o diabetees)...the rca is large and dominant supplying collats to cx and lad territories...? complex pci of cx and poss occl lad vs cabg...pt is stable and will be given med mangagment until cv surgery consult and/or pci decision Plan: 1. cv consult Patient Problems: Problems Problem Status Onset Altered mental status Acute Elevated troponin Acute
[2018-08-06] MEDS ORDERED: OXYCODONE/APAP 5/325 TAB PO PRN (14:01)
[2018-08-06] MEDS ORDERED: HYDROCODONE/APAP 5/325 TAB PO PRN (14:01)
[2018-08-06] MEDS ORDERED: ATROPINE SULFATE 1 MG/10 ML SYR IVP PRN (14:01)
[2018-08-06] MEDS ORDERED: ONDANSETRON 4 MG/2 ML VIAL IVP PRN (14:01)
[2018-08-06] MEDS: HEPARIN 10,000 UNIT/10 ML MDV (1,000 UNIT/ML) IVP PRN (14:37)
[2018-08-06] MEDS: HEPARIN/DEXTROSE 500 ML IV SCH (14:38)
--- NOTE | 2018-08-06 15:37 | ASMTCMCOM ---
CM Note CM Note Notes: Pt admitted for abnormal EKG and elevated troponin after being brought to the ED by the police who found him lost and confused after driving home from dialysis. Pt lives with daughter and son in law who are concerned for recent cognitive decline that pt refuses to have evaluated. Pt has end stage renal disease and receives dialysis on MWF. Pt underwent angiography today in cytology laboratory manager and will need cardiology consult for possible angioplasty. Cognitive eval by GIVING OFFICER has been ordered but not yet completed. Pt is on bed rest today. Discharge needs TBD. CM will follow. D/C Plan: TBD Date Signed: 08/06/2018 03:37 PM Electronically Signed By:Elisa Cadet
[2018-08-06] MEDS: NITROGLYCERIN 2% 1 GM PACKET TP SCH ×2 (15:56→20:26)
--- NOTE | 2018-08-06 18:11 | GCON ---
PULMONARY/CRITICAL CARE CONSULTATION DATE OF CONSULTATION: 08/06/2018 REFERRING PHYSICIAN: Jorge L Waite MD REASON FOR REFERRAL: Evaluation and management of anemia, hypothyroidism, and acute coronary syndrom e. HISTORY: The patient is a 73-year-old male with a history of end-stage renal disease and hypertensio n, as well as systolic congestive heart failure, who was admitted after being found a bit confused an d brought to the emergency department where an evaluation included an elevated troponin. He denies c hest pain. Because of the elevated troponin, an angiogram was performed today which demonstrated sev ere multivessel coronary artery disease. He is being considered for revascularization, including ref erral to Cardiothoracic Surgery. The patient currently denies any chest pain or shortness of breath. PAST MEDICAL HISTORY: 1. End-stage renal disease, likely due to chronic obstruction. 2. History of prostate cancer. 3. Hypertension. 4. Gout. 5. Sensorineural hearing loss. MEDICATIONS: At the time of admission include amlodipine, Coreg, Lasix, calcitriol, sodium bicarbona te, fish oil. ALLERGIES: None. 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 He is . He has smoked in the past and does not drink alcohol. He has had some recent confusion after dialysis which prompted his current admission. REVIEW OF SYSTEMS: A 10-point review of systems adds nothing to the History of Present Illness. PHYSICAL EXAMINATION: GENERAL: The patient is awake and alert. He is in no acute distress. VITAL SIGNS: Blood pressure is 146/106. He is afebrile. Oxygen saturations are 91% on 2 L. HEENT: Normocephalic and atraumatic. No icterus. NECK: No adenopathy. Trachea is midline. CHEST: Clear to auscultation. CARDIAC: Regular rate and rhythm without murmur. ABDOMEN: Soft and nontender. Bowel sounds are present. EXTREMITIES: No clubbing, cyanosis, or rj ma. NEURO: The patient is awake and alert. He has no gross motor or sensory deficits and is oriented x3 as well as being oriented to recent events. LABORATORY: Creatinine is 3.5. A troponin is 3.6, down from 4.1. TSH is 0.375. Hemoglobin is 10.0 , and INR is 1.2. Lactate is 1.2. An echocardiogram shows concentric LVH with an ejection fraction estimated to be 20% with regional wa ll motion abnormalities. The right ventricular systolic pressure is estimated at 59 mmHg. A chest x-ray shows some mild atelectasis. Images reviewed by me. ASSESSMENT: 1. Acute coronary syndrome. The patient has an acute elevation in his troponin and ST segment eleva tion on EKG. He is currently asymptomatic. 2. Ischemic cardiomyopathy. The patient has an ejection fraction that is about 20% with regional wa ll motion abnormalities, consistent with ischemic cardiomyopathy. He has significant coronary artery disease that would likely benefit from revascularization. 3. Chronic renal failure on dialysis. 4. Low TSH. This is slightly reduced. His free T3 and T4 levels are normal. 5. Anemia. The patient has anemia, likely chronic related to his chronic kidney disease. RECOMMENDATIONS: 1. Continue medical management for acute coronary syndrome with ST segment elevation. 2. Cardiothoracic Surgery consultation. 3. Nephrology has been consulted and will see the patient regarding ongoing dialysis needs. /[id number]/MODL
--- NOTE | 2018-08-06 18:20 | PDSURGCRDT ---
CardioThoracic Surgery Note - Objective Objective: Vital Signs Temp Pulse Resp BP Pulse Ox 36.6 C 92 18 146/106 H 91 L 08/06/18 16:00 08/06/18 16:00 08/06/18 16:00 08/06/18 16:00 08/06/18 16:00 Laboratory Results 08/06/18 11:12 08/06/18 04:45 08/05/18 08/06/18 08/07/18 05:59 05:59 05:59 Intake Total 100 500 Output Total 750 Balance -650 500 Imaging: Asked to see this 73 year old HD patient after he was found disoriented and ER eval showed elevated troponin. He went to section laborer which shows old LAD occlusion, huge RCA which is widely patent and tight circumflex marginal disease. There is no evidence of distal target in LAD and echo shows evidence of old large vikki-apical KY. I suspect Circumflex lesion is source of his recent [place].He is a poor surgical candidate due to elevated risk with low EF and chronic hemodialysis. PCI may be an option but at this time he is refusing all intervention. Exam Temp Pulse Resp BP Pulse Ox 36.6 C 92 18 146/106 H 91 L 08/06/18 16:00 08/06/18 16:00 08/06/18 16:00 08/06/18 16:00 08/06/18 16:00 O2 (L/minute) 2
[2018-08-07] MEDS: NITROGLYCERIN 2% 1 GM PACKET TP SCH ×4 (03:24→20:48)
[2018-08-07] MEDS: HEPARIN 10,000 UNIT/10 ML MDV (1,000 UNIT/ML) IVP PRN (05:48)
[2018-08-07] MEDS ORDERED: amLODIPine BESYLATE 5 MG TAB PO SCH (09:00)
--- NOTE | 2018-08-07 10:25 | SOAPPROG ---
[facility] Progress Note Assessment/Plan: Assessment: 1. Ischemic cardiomyopathy. Patient it appears has had an old myocardial infarction in the past however this may have been a recent event as well. He he is asymptomatic and otherwise feeling well he continues to have ST- elevation. This point discussed our options conservative versus invasive therapy is agreed to invasive therapy cardiac catheterization and possible PCI will be done this afternoon. The Dr. Judge nephrology is aware. Patient is not having ongoing symptoms at this time. 2. Chronic renal insufficiency patient on dialysis for last 4-6 months. Apparently is doing well at dialysis. 08/07/18 1. Ischemic cardiomyopathy. Cardiac catheterization revealed probable chronic occlusion of the LAD with distal vessels filling via collaterals. Patient has a circumflex artery which has tandem significant lesions. Patient has a large dominant right coronary artery supplying collaterals. After his consulting Cardiovascular surgery and Interventional Service. Surgery has been ruled out as a too high risk procedure. Stenting options could be considered versus medical management. After discussing options. Patient today is adamant about not obtaining any further testing or stenting procedure. Will begin beta- juan and Leland and therapy. 2. End-stage renal disease. Patient to have dialysis today. 3. Dementia. Suspect this is an ongoing issue. I have discussed this with his daughter. I am concerned with medical compliance in this patient. Will need to discuss more fully with daughter. At this point patient is making his own medical decisions. Will discuss ethics consult options with hospitalist. Plan: 1. Medical management at this time for significant CAD and ischemic cardiomyopathy. 08/06/18 11:43 08/07/18 10:30 Subjective: Geovany is doing well post his catheterization yesterday. Reviewed consult and spoke with Dr. Sullivan.. Surgery would be very high risk. Patient's options at this point are stenting options versus medical management. Patient today does not want any procedures done. I reviewed the findings of the cardiac catheterization as best I could with him. At this point he will undergo dialysis today we will start medical management with beta-juan had LELAND- inhibitor. I spoke to his daughter Mary Anne as well. She will talk to about his options as well. I told her that for future medical needs we could obtain a ethics consult for their input as to his competency to make informed decisions. This will be further discussed later today after the daughter talks with Geovany. Objective: Vital Signs Temp Pulse Resp BP Pulse Ox 36.6 C 92 18 103/58 L 91 L 08/07/18 08:00 08/07/18 08:00 08/07/18 08:00 08/07/18 08:00 08/07/18 08:00 Laboratory Results 08/06/18 11:12 08/06/18 19:22 08/06/18 08/07/18 08/08/18 05:59 05:59 05:59 Intake Total 100 1169 Output Total 750 500 150 Balance -650 669 -150 PT 15.7 SEC (12.0-15.0) H 08/06/18 11:12 INR 1.23 (0.83-1.16) H 08/06/18 11:12 Physical Exam - Physical Exam Respiratory: lungs clear Cardiac/Chest: normal peripheral pulses, regular rate, rhythm, systolic murmur ICD10 Worksheet Patient Problems: Problems Problem Status Onset Altered mental status Acute Elevated troponin Acute
--- NOTE | 2018-08-07 10:37 | SOAPPROG ---
[facility] Progress Note Assessment/Plan: Assessment: 1. ESRD - -On HD MWF -Cont today per routine -RUE AVF appears patent 2. NSTEMI - -Old occluded LAD, potential culprit lesion in Cx -Pt deemed poor candidate for CABG and not inclined to pursue PCI -Cont medical management, add ASA, statin, BB, ACEI 3. 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 Objective: Vital Signs Temp Pulse Resp BP Pulse Ox 36.6 C 92 18 103/58 L 91 L 08/07/18 08:00 08/07/18 08:00 08/07/18 08:00 08/07/18 08:00 08/07/18 08:00 Laboratory Results 08/06/18 11:12 08/06/18 19:22 08/06/18 08/07/18 08/08/18 05:59 05:59 05:59 Intake Total 100 1169 Output Total 750 500 150 Balance -650 669 -150 PT 15.7 SEC (12.0-15.0) H 08/06/18 11:12 INR 1.23 (0.83-1.16) H 08/06/18 11:12 Physical Exam - Physical Exam General Appearance: WD/WN, no apparent distress Respiratory: lungs clear Cardiac/Chest: regular rate, rhythm Abdomen: non-tender, soft Extremities: other (RUE AVF +br/thrill), No swelling ICD10 Worksheet Patient Problems: Problems Problem Status Onset Altered mental status Acute Elevated troponin Acute
[2018-08-07] MEDS: LISINOPRIL 2.5 MG TAB PO SCH (11:40)
--- NOTE | 2018-08-07 11:54 | HOSPPROG ---
Hospitalist Progress Note Assessment/Plan: DIAGNOSES: * nonST-elevation myocardial infarction * acute hypotension, resolved; unclear if this was due to dialysis or due to his heart episode * acute confusional episode of delirium, resolved * appears to have a dementia based on his examination here and is history * pyuria, uncertain if this represents infection or other inflammatory process * Culture with no growth today, no fevers * end-stage renal disease on dialysis * anemia of renal disease, stable at target Overall the patient's situation is complicated. He does have a tight circumflex marginal branch which has some degree of collateral flow. Is possible that this is the culprit lesion for his episode yesterday. Medical management could be potentially complicated if it leads to lowered blood pressures with dialysis sessions. Placing a stent in this patient would be very problematic in that I do not believe he would be compliant with taking Plavix for a year in addition to aspirin and statin. Could be considered to trying give him the Plavix at his dialysis sessions 3 times a week and trying get his family did take it on the weekends. However the patient at this point is not currently agreeable to proceeding with stent placement even though he understands the maybe risk of myocardial infarction or other complications. He does seem very clearly to understand that he has had a heart attack with injury to his heart muscle in the past, has a new episode with minimal injury at this time with a tight coronary lesion that leaves him at some risk. He he admits that we were looking for ways to reduce his risk, but does not trust that we are choosing appropriate recommended interventions for appropriate reasons. I believe he actually does have decisional capacity, and that his decision making tendencies are impacted by fears and other issues related to experiences of some of his friends. PLANS: * For now maximum medical management of coronary disease * The patient's daughter apparently will here later and further conversations can occur between the family and the involved physicians Patient seen by me today on hospitals rounds as well as multidisciplinary rounds. I reviewed the patient's situation in detail today with doctors Shiva Rodriguez SUBJECTIVE: No chest pain or angina-like symptoms, dyspnea, nausea, slept well Ate breakfast States he feels comfortable overall OBJECTIVE Vitals reviewed: Blood pressure is notably improved, stable pulse respirations and normal temperature is Process Eng, my review: Sinus rhythm Exam: alert oriented with much better mentation today, able to carry out very normal conversation skin warm dry color ok resps not labored lungs clear BSs heart regular abd soft nondistended nontender, bowel sounds present limbs warm, no edema iv site ok Lab data: Troponin now elevated to greater than 4; CK-MB positive Basic met panel with creatinine at 3.5 but good electrolytes and is not acidotic White blood cell count improved, hemoglobin at 10 which I presume is chronic related to his end-stage renal disease Microbiology data: Urine culture pending with no growth to date I reviewed the patient's EKG from the ER which shows sinus rhythm and with severe acute ST segment elevations anterior lateral chest leads Objective: Vital Signs Temp Pulse Resp BP Pulse Ox 36.6 C 84 18 112/75 94 08/07/18 08:00 08/07/18 11:41 08/07/18 11:41 08/07/18 11:41 08/07/18 11:41 Laboratory Results 08/06/18 11:12 08/06/18 19:22 08/06/18 08/07/18 08/08/18 06:59 06:59 06:59 Intake Total 100 1169 Output Total 750 500 150 Balance -650 669 -150 PT 15.7 SEC (12.0-15.0) H 08/06/18 11:12 INR 1.23 (0.83-1.16) H 08/06/18 11:12 - Time Spent With Patient Time Spent with Patient: greater than 35 minutes Time Spent with Patient: Greater than 35 minutes spent on this patients care, greater than 50% of time spent counseling, educating, and coordinating care regarding the above mentioned plan. ICD10 Worksheet Patient Problems: Problems Problem Status Onset Altered mental status Acute Elevated troponin Acute
--- NOTE | 2018-08-07 15:22 | PDINTPN ---
Tobacco Checkout Clerk Progress Note Assessment/Plan: Assessment: Acute myocardial infarction: The patient's troponins are falling and he is hemodynamically stable with no signs of ongoing ischemia. He is not felt to be a good candidate for coronary artery bypass grafting. Ischemic cardiomyopathy: Clinically asymptomatic. Acute confusional episode: Resolved Chronic kidney disease: His chemistry is unremarkable. He is on Friday- Friday-Friday dialysis schedule Plan: Stenting of the circumflex arteries has been recommended, but the patient refuses. He would prefer to go home and follow up with dialysis, see how he does, and consider intervention at a later date. I think he can be transferred to PCU. 08/07/18 15:20 Subjective: Denies chest pain, dyspnea. Objective: Vital Signs Temp Pulse Resp BP Pulse Ox 36.6 C 84 18 112/75 94 08/07/18 08:00 08/07/18 11:41 08/07/18 11:41 08/07/18 11:41 08/07/18 11:41 Laboratory Results 08/06/18 11:12 08/06/18 19:22 08/06/18 08/07/18 08/08/18 05:59 05:59 05:59 Intake Total 100 1169 Output Total 750 500 525 Balance -650 669 -525 PT 15.7 SEC (12.0-15.0) H 08/06/18 11:12 INR 1.23 (0.83-1.16) H 08/06/18 11:12 Laboratory Tests 08/05/18 08/06/18 08/06/18 21:09 04:45 11:12 POC Troponin I 1.13 H Troponin I 4.090 H 3.610 H Physical Exam - Physical Exam General Appearance: alert, no apparent distress EENT: normal ENT inspection Neck: normal inspection Respiratory: lungs clear, normal breath sounds Cardiac/Chest: regular rate, rhythm, No edema Abdomen: normal bowel sounds, non-tender Skin: warm/dry Extremities: normal inspection Neuro/Psych: alert, normal mood/affect, oriented x 3 ICD10 Worksheet Patient Problems: Problems Problem Status Onset Altered mental status Acute Elevated troponin Acute
[2018-08-07] MEDS: HEPARIN/DEXTROSE 500 ML IV SCH (20:07)
[2018-08-07] MEDS: CARVEDILOL 3.125 MG TAB PO SCH (20:48)
[2018-08-07] MEDS ORDERED: LIDOCAINE 1% *Not for Epidural 20 ML MDV ONE (21:49)
[2018-08-08] MEDS: NITROGLYCERIN 2% 1 GM PACKET TP SCH ×2 (04:58→08:24)
[2018-08-08] MEDS: CARVEDILOL 3.125 MG TAB PO SCH ×3 (08:24→17:51)
[2018-08-08] MEDS: LISINOPRIL 2.5 MG TAB PO SCH ×2 (08:24→11:35)
--- NOTE | 2018-08-08 08:38 | PDPROPOC ---
Sedation Plan of Care Sedation Plan of Care: vital signs stable, mental status noted, patient educated of risks, benefits, alternatives, patient can tolerate sedation ASA Classification: ASA 3 Planned drugs: fentanyl, midazolam Mallampati Score: Class 1 Mallampati Reference Image: Patient passed 3-3-2 rule?: Yes
--- NOTE | 2018-08-08 08:38 | PDHPUP ---
History & Physical Update H&P update statement: This history and physical update is based on an assessment of the patient which was completed after admission or registration (within 24 hours), but prior to the surgery/procedure. H&P update: H&P reviewed & patient examined, no change in patient's condition since H&P completed
[2018-08-08] MEDS ORDERED: IOPAMIDOL (ISOVUE-370) 150 ML BTL IV ONE ×2 (08:47→10:37)
[2018-08-08] MEDS ORDERED: LIDOCAINE 1% 300 MG/30 ML SDV ONE ×2 (08:47→09:40)
--- NOTE | 2018-08-08 08:56 | SOAPPROG ---
[facility] Progress Note Assessment/Plan: Assessment: 1. Ischemic cardiomyopathy. Patient it appears has had an old myocardial infarction in the past however this may have been a recent event as well. He he is asymptomatic and otherwise feeling well he continues to have ST- elevation. This point discussed our options conservative versus invasive therapy is agreed to invasive therapy cardiac catheterization and possible PCI will be done this afternoon. The Dr. Judge nephrology is aware. Patient is not having ongoing symptoms at this time. 2. Chronic renal insufficiency patient on dialysis for last 4-6 months. Apparently is doing well at dialysis. 08/07/18 1. Ischemic cardiomyopathy. Cardiac catheterization revealed probable chronic occlusion of the LAD with distal vessels filling via collaterals. Patient has a circumflex artery which has tandem significant lesions. Patient has a large dominant right coronary artery supplying collaterals. After his consulting Cardiovascular surgery and Interventional Service. Surgery has been ruled out as a too high risk procedure. Stenting options could be considered versus medical management. After discussing options. Patient today is adamant about not obtaining any further testing or stenting procedure. Will begin beta- juan and Leland and therapy. 2. End-stage renal disease. Patient to have dialysis today. 3. Dementia. Suspect this is an ongoing issue. I have discussed this with his daughter. I am concerned with medical compliance in this patient. Will need to discuss more fully with daughter. At this point patient is making his own medical decisions. Will discuss ethics consult options with hospitalist. Plan: 1. Medical management at this time for significant CAD and ischemic cardiomyopathy. 08/06/18 11:43 08/07/18 10:30 08/08/18 08:55 2. pci today ..kitty re outlined..no further questions....pt ready to go Subjective: doing better..agrees to pci..risks re outlined Objective: Vital Signs Temp Pulse Resp BP Pulse Ox 36.6 C 75 16 113/68 95 08/08/18 07:40 08/08/18 08:24 08/08/18 05:20 08/08/18 08:24 08/08/18 07:40 Laboratory Results 08/08/18 05:25 08/08/18 05:25 08/07/18 08/08/18 08/09/18 05:59 05:59 05:59 Intake Total 1169 484 Output Total 500 675 Balance 669 -191 PT 15.7 SEC (12.0-15.0) H 08/06/18 11:12 INR 1.23 (0.83-1.16) H 08/06/18 11:12 ICD10 Worksheet Patient Problems: Problems Problem Status Onset Altered mental status Acute Elevated troponin Acute
[2018-08-08] MEDS ORDERED: MIDAZOLAM 2 MG/2 ML VIAL ONE ×2 (09:11→09:51)
[2018-08-08] MEDS ORDERED: fentaNYL 100 MCG/2 ML INJ ONE ×2 (09:11→09:51)
[2018-08-08] MEDS ORDERED: HEPARIN 10,000 UNIT/10 ML MDV (1,000 UNIT/ML) ONE (09:33)
[2018-08-08] MEDS ORDERED: CLOPIDOGREL BISULFATE 75 MG TAB PO ONE (11:05)
--- NOTE | 2018-08-08 11:11 | PDCTREPORT ---
Cardiothoracic Procedure Rpt Cardiothoracic Procedure Report: Procedure: 1. PCI and stenting of the proximal and mid to distal circumflex artery/OM . After reviewing diagnostic angiograms by my partner Dr. Shane Ring. After reviewing consultation by Cardiothoracic surgery Deeming him in operable it was elected to proceed with high risk PCI of the circumflex/obtuse marginal branch. For details of the procedure please see attached computer report. Old films were reviewed suggesting significantly dilated aorta. The patient had been dialyzed. Attempts at cannulating the left femoral artery were made but failed. There were poor femoral pulses. The right femoral artery was react assessed. 7 Lithuanian sheath was inserted in the right femoral artery. Multiple guide catheters were used to engage the left main coronary. Ultimately a 7 Lithuanian JL5 catheter was used. This was suboptimal with poor support but did allow gauge min of the left main ostium. Using a 0.014 intuition wire the circumflex/obtuse marginal branch was entered the wire plasty into the distal vessel. Predilatation was performed with a 2 mm balloon. Repeat angiograms revealed ALEX grade 3 flow. Attempts at stenting with a 2.5 x 24 mm synergy stent were made but failed. There was no guide support. A 0.014 mailman wire was used as a ananth. This allowed placement of the distal stent. It was deployed using a single inflation. The Mailman wire was entrapped but able to be withdrawn. Repeat angiograms revealed ALEX grade 3 flow with a distal dissection. A 2nd 2.5 x 24 mm synergy stent was placed proximally. It was deployed using a single inflation. Repeat angiograms revealed ALEX grade 3 flow with a distal dissection. The intuition wire was attempted to be negotiated into the distal obtuse marginal branch but it would not pass. It was ultimately withdrawn. A 0.014 luge wire was then and used to enter the vessel and taken distal. A 2.0 mm balloon was used to post dilate the dissection. On withdrawal of the balloon the wire also came back. Attempts at rewiring did not allow passage beyond the dissection flap. This was quite distal and had collateral flow seen on prior angiograms. After multiple attempts at trying to rewire it was elected to stop. Final angiogram revealed flow to the distal obtuse marginal branch. Patient was having no chest discomfort. He is hemodynamically stable. The right groin was closed with an Angio-Seal. A small hematoma had developed in the attempted left femoral site which was compressed. Patient is taken to recovery for continued care. Conclusions: Successful PCI and stenting of the proximal mid distal circumflex/ obtuse marginal branch. Complications: Distal dissection. Patient be continued on dual antiplatelet therapy with continue clinical follow- up. Patient Problems: Problems Problem Status Onset Altered mental status Acute Elevated troponin Acute
[2018-08-08] MEDS: ASPIRIN EC 325 MG TAB PO SCH (11:36)
--- NOTE | 2018-08-08 13:06 | PDINTPN ---
Engineering Consultant Progress Note Assessment/Plan: Assessment: Acute myocardial infarction: The patient's troponins are falling and he is hemodynamically stable with no signs of ongoing ischemia. He has just undergone PTCA of an obtuse marginal, which was successful but complicated by a distal dissection Ischemic cardiomyopathy: Clinically asymptomatic. Acute confusional episode: Resolved Chronic kidney disease: His chemistry is unremarkable. He is on Friday- Friday-Friday dialysis schedule Plan: Continue post-PTCA care. I think he can be transferred to PCU later today. 08/08/18 13:05 Subjective: Today's chest pain/dyspnea, or groin pain. Objective: Vital Signs Temp Pulse Resp BP Pulse Ox 36.6 C 91 18 115/98 H 96 08/08/18 07:40 08/08/18 12:00 08/08/18 12:00 08/08/18 12:00 08/08/18 12:00 Laboratory Results 08/08/18 05:25 08/08/18 05:25 08/07/18 08/08/18 08/09/18 05:59 05:59 05:59 Intake Total 1169 484 Output Total 500 675 200 Balance 669 -191 -200 PT 15.7 SEC (12.0-15.0) H 08/06/18 11:12 INR 1.23 (0.83-1.16) H 08/06/18 11:12 Physical Exam - Physical Exam General Appearance: alert, no apparent distress EENT: normal ENT inspection Neck: normal inspection Respiratory: lungs clear, normal breath sounds Cardiac/Chest: regular rate, rhythm, No edema Abdomen: normal bowel sounds, non-tender Skin: normal color, warm/dry Extremities: normal inspection Neuro/Psych: alert, normal mood/affect, oriented x 3 ICD10 Worksheet Patient Problems: Problems Problem Status Onset Altered mental status Acute Elevated troponin Acute
--- NOTE | 2018-08-08 13:28 | PDMN ---
Medical Necessity Medical necessity: Change to inpt as of 08/08/18 @ 1107. Pt meets inpt criteria per MD order and MCG [id number], Myocardial Infarction. 73 y/o w/complex medical hx initially including chronic kidney disease requiring dialysis 3xweek, admitted w /AMS and hypotension, elev troponins. Acute NV, successful PTCA of obtuse marginal but complicated by a distal dissection. Est LOS>2MN for ongoing med nec management of above.
--- NOTE | 2018-08-08 14:33 | ASMTCMCOM ---
CM Note CM Note Notes: Patient finally agreed to intervention by Cardiology; today, he had a PCI and stenting of the proximal and distal circumflex artery. Per previous notes, there is some concern about patient's ability to make decision for himself/comply with prescribed treatment. His daughter has also mentioned this. Hospital medicine is to decide whether an ethics consult is warranted. Case Management will follow for d/c planning. Date Signed: 08/08/2018 02:33 PM Electronically Signed By:Luz Moreno RN
--- NOTE | 2018-08-08 16:15 | HOSPPROG ---
Hospitalist Progress Note Assessment/Plan: DIAGNOSES: * nonST-elevation myocardial infarction * diffuse coronary disease with large old anterior infarct; 1 branch vessel in the circumflex territory is likely the culprit and there is some poor collateralization to that vessel at this time; this lesion was stented on August [address] Mccord with good flow, minimal dissection occurred * acute hypotension, resolved; unclear if this was due to dialysis or due to his heart episode * acute confusional episode of delirium, resolved * appears to have a dementia based on his examination here and is history * pyuria, uncertain if this represents infection or other inflammatory process * Incompletely identified strep greater than 100,000 colonies is found in culture at this time * end-stage renal disease on dialysis * anemia of renal disease, stable at target PLANS: * Observe overnight for any signs of complication related to the coronary dissection * Plan on likely discharge tomorrow * Aggressive prevention measures for vascular disease will be recommended, uncertain how well the patient will be able to comply with all these * Will need to trying get him to takes statins and take Plavix for at least a month but ideally for year * Continue antibiotic while waiting for final results of the urine culture Patient seen by me today on hospitals rounds as well as multidisciplinary rounds. I reviewed the patient's situation in detail today with Dr. Rafy Mccord SUBJECTIVE: No chest pain or angina-like symptoms, dyspnea, nausea, slept well Ate breakfast States he feels comfortable overall OBJECTIVE Vitals reviewed: Blood pressure is notably improved, stable pulse respirations and normal temperature is Test Manager, my review: Sinus rhythm Exam: alert oriented with much better mentation today, able to carry out very normal conversation skin warm dry color ok resps not labored lungs clear BSs heart regular abd soft nondistended nontender, bowel sounds present limbs warm, no edema iv site ok Lab data: Chemistries reviewed by me today Troponin trending downward Renal related labs as expected for his cycle of dialysis Microbiology data: Alpha hemolytic strep growing not fully identified Objective: Vital Signs Temp Pulse Resp BP Pulse Ox 36.6 C 71 14 122/68 H 97 08/08/18 07:40 08/08/18 16:00 08/08/18 16:00 08/08/18 16:00 08/08/18 16:00 PT 15.7 SEC (12.0-15.0) H 08/06/18 11:12 INR 1.23 (0.83-1.16) H 08/06/18 11:12 ICD10 Worksheet Patient Problems: Problems Problem Status Onset Altered mental status Acute Elevated troponin Acute
--- NOTE | 2018-08-08 17:35 | SOAPPROG ---
[facility] Progress Note Assessment/Plan: Assessment: 1. ESRD - -On HD MWF -Would be on for tomorrow due to holiday schedule but he is refusing, will try to arrange for HD on Friday -RUE AVF appears patent 2. NSTEMI - -Old occluded LAD, potential culprit lesion in Cx -Pt deemed poor candidate for CABG and initially refused PCI but agreed, had it done today with stent x2 to L Cx -Cont medical management 3. Anemia - -At CKD goal 4. CKD-MBD -Phos above goal, add sevelamer 1 tab TIDAC -ESRD diet Plan: 08/08/18 17:31 08/08/18 17:36 Subjective: Pt tolerated cardiac cath well, denies complaint now. Objective: Vital Signs Temp Pulse Resp BP Pulse Ox 36.6 C 71 14 122/68 H 97 08/08/18 07:40 08/08/18 16:00 08/08/18 16:00 08/08/18 16:00 08/08/18 16:00 08/07/18 08/08/18 08/09/18 05:59 05:59 05:59 Intake Total 75 Balance 75 PT 15.7 SEC (12.0-15.0) H 08/06/18 11:12 INR 1.23 (0.83-1.16) H 08/06/18 11:12 Physical Exam - Physical Exam General Appearance: WD/WN, no apparent distress Respiratory: lungs clear Cardiac/Chest: regular rate, rhythm Abdomen: non-tender, soft Extremities: other (RUE AVF +br/thrill), No swelling ICD10 Worksheet Patient Problems: Problems Problem Status Onset Altered mental status Acute Elevated troponin Acute
[2018-08-08] MEDS: SEVELAMER HCL 800 MG TAB PO SCH (17:51)
[2018-08-09 04:38] LABS: PLATELET COUNT 289 10^3/uL (150-400)
[2018-08-09] MEDS ORDERED: CLOPIDOGREL BISULFATE 75 MG TAB PO SCH (09:00)
--- NOTE | 2018-08-09 09:21 | SOAPPROG ---
[facility] Progress Note Assessment/Plan: Assessment: 1. Ischemic cardiomyopathy. Patient it appears has had an old myocardial infarction in the past however this may have been a recent event as well. He he is asymptomatic and otherwise feeling well he continues to have ST- elevation. This point discussed our options conservative versus invasive therapy is agreed to invasive therapy cardiac catheterization and possible PCI will be done this afternoon. The Dr. Judge nephrology is aware. Patient is not having ongoing symptoms at this time. 2. Chronic renal insufficiency patient on dialysis for last 4-6 months. Apparently is doing well at dialysis. 08/07/18 1. Ischemic cardiomyopathy. Cardiac catheterization revealed probable chronic occlusion of the LAD with distal vessels filling via collaterals. Patient has a circumflex artery which has tandem significant lesions. Patient has a large dominant right coronary artery supplying collaterals. After his consulting Cardiovascular surgery and Interventional Service. Surgery has been ruled out as a too high risk procedure. Stenting options could be considered versus medical management. After discussing options. Patient today is adamant about not obtaining any further testing or stenting procedure. Will begin beta- juan and Leland and therapy. 2. End-stage renal disease. Patient to have dialysis today. 3. Dementia. Suspect this is an ongoing issue. I have discussed this with his daughter. I am concerned with medical compliance in this patient. Will need to discuss more fully with daughter. At this point patient is making his own medical decisions. Will discuss ethics consult options with hospitalist. Plan: 1. Medical management at this time for significant CAD and ischemic cardiomyopathy. 08/06/18 11:43 08/07/18 10:30 08/08/18 08:55 2. pci today ..kitty leyva outlined..no further questions....pt ready to go 08/09/18 09:20 08/09/18..pt ok to d/c home on current meds with f/u at [facility] in 1 week Subjective: pt doing well today...ok for c/c ..i discussed importance of med compliance..he will dialyze tommorrow at [place] on his regular schedule Objective: Vital Signs Temp Pulse Resp BP Pulse Ox 36.6 C 96 12 119/79 94 08/09/18 04:00 08/09/18 04:00 08/09/18 04:00 08/09/18 04:00 08/09/18 04:00 Laboratory Results 08/09/18 03:39 08/09/18 03:39 08/08/18 08/09/18 08/10/18 05:59 05:59 05:59 Intake Total 525 Balance 525 PT 15.7 SEC (12.0-15.0) H 08/06/18 11:12 INR 1.23 (0.83-1.16) H 08/06/18 11:12 Physical Exam - Physical Exam Respiratory: lungs clear Cardiac/Chest: regular rate, rhythm, No edema, No JVD Peripheral Pulses: 2+: dorsalis-pedis (R), dorsalis-pedis (L) ICD10 Worksheet Patient Problems: Problems Problem Status Onset Altered mental status Acute Elevated troponin Acute
[2018-08-09 09:22] VITALS: BP 125/82
[2018-08-09] MEDS: LISINOPRIL 2.5 MG TAB PO SCH (10:01)
[2018-08-09] MEDS: ASPIRIN EC 325 MG TAB PO SCH (10:01)
[2018-08-09] MEDS: SEVELAMER HCL 800 MG TAB PO SCH ×2 (10:02→14:07)
[2018-08-09] MEDS: CARVEDILOL 3.125 MG TAB PO SCH (10:02)
--- NOTE | 2018-08-09 11:01 | SOAPPROG ---
[facility] Progress Note Assessment/Plan: Assessment: 1. ESRD - -On HD MWF -Next HD on Friday -RUE AVF appears patent 2. NSTEMI - -Old occluded LAD, potential culprit lesion in Cx -Pt deemed poor candidate for CABG and initially refused PCI but agreed, had it done 08/08 with stent x2 to L Cx -Cont medical management 3. Anemia - -At CKD goal 4. CKD-MBD -Phos above goal, added sevelamer 1 tab TIDAC -ESRD diet Plan: 08/09/18 10:59 Subjective: Feels well, no c/o. Objective: Vital Signs Temp Pulse Resp BP Pulse Ox 36.9 C 85 19 125/82 H 94 08/09/18 08:00 08/09/18 08:00 08/09/18 08:00 08/09/18 08:00 08/09/18 08:00 Laboratory Results 08/09/18 03:39 08/09/18 03:39 08/08/18 08/09/18 08/10/18 05:59 05:59 05:59 Intake Total 525 Balance 525 PT 15.7 SEC (12.0-15.0) H 08/06/18 11:12 INR 1.23 (0.83-1.16) H 08/06/18 11:12 Physical Exam - Physical Exam General Appearance: WD/WN, no apparent distress Respiratory: normal breath sounds Cardiac/Chest: regular rate, rhythm Abdomen: soft Extremities: other (RUE AVF +br/thrill), No swelling ICD10 Worksheet Patient Problems: Problems Problem Status Onset Altered mental status Acute Elevated troponin Acute
--- NOTE | 2018-08-09 14:12 | ASMTLACE ---
LACE Length of stay for Answers: 4-6 days current admission Acuity / Level of Answers: Yes Care: Did the patient have an inpatient admission? Comorbidities - select Answers: Congestive heart failure all that apply Coronary Artery Disease Moderate or severe liver or renal disease Other Notes: Hx of DVT; HTN # of Emergency department Answers: 1-2 visits in the last 6 months Score: 17 Date Signed: 08/09/2018 02:12 PM Electronically Signed By:Luz Moreno RN
--- NOTE | 2018-08-09 14:14 | ASMTDCNOTE ---
Case Management Discharge Discharge Order Complete? Answers: Yes Patient to Obtain Answers: Independently Medications Transportation Arranged Answers: Family/Friends Family Notified Answers: Yes Discharge Comments Notes: Patient discharged per cardiology, nephrology, and hospital medicine. He will resume normal dialysis schedule tomorrow. Hospital medicine believes patient to be decisional, so no Ethics consult was warranted. Date Signed: 08/09/2018 02:13 PM Electronically Signed By:Luz Moreno RN
--- NOTE | 2018-08-09 19:21 | PDDCSUM ---
Discharge Summary Discharge Summary: DISCHARGE DIAGNOSES: * nonST-elevation myocardial infarction * diffuse coronary disease with large old anterior infarct; 1 branch vessel in the circumflex territory is likely the culprit and there is some poor collateralization to that vessel at this time; this lesion was stented on August [address] Mccord with good flow, minimal dissection occurred * acute hypotension, resolved; unclear if this was due to dialysis or due to his heart episode * acute confusional episode of delirium, resolved * appears to have a dementia based on his examination here and is history * pyuria, uncertain if this represents infection or other inflammatory process * Incompletely identified strep greater than 100,000 colonies is found in culture at this time * end-stage renal disease on dialysis * anemia of renal disease, stable at target CONSULTANTS: Dr. Shane Johnston PROCEDURES: Echocardiogram Coronary angiography Interventional invasive cardiac procedure with placement of stent in distal circumflex artery and obtuse marginal branch Hemodialysis which is normal in routine for him HOSPITAL COURSE SUMMARY: This patient presented to the hospital after an acute confusional episode where he was driving and got lost. He had just come from his dialysis session. He was hypotensive and still remaining a bit confused. There is concern about cardiac function based on his presentation and indeed he had ST segment elevation which was mildly worse than previous EKGs with a troponin initially at 1 that increased to 4 overnight. He had previously been diagnosed at another hospital with an anterior myocardial infarction but had essentially refused to be assessed with angiograms or undergo other significant evaluation or preventive measures. Initially here the patient was not in any heart failure did not have arrhythmia and vital signs were stabilized easily with a little bit of fluid. He was treated with aspirin and heparin and watched in the intensive care unit. With a great deal of difficulty we were able to discuss the patient's situation with him to the point where he understood our concerns and was agreeable to coronary angiography. This examination showed proximal complete occlusion of the LAD after the 1st diagonal and with some collaterals to the distal LAD, 80% left proximal and 75% mid circumflex lesions , and a large dominant right vessel with collaterals to the circumflex and LAD. The collateral vessels were not felt to be very effective. There is consideration for whether the patient has a be a better surgical or stent candidate so the patient did not receive stenting at the time of angiography. He was seen in consultation by Dr. Mujica from surgery who felt that the patient did not have a large area of viable tissue in the area to be treated and did not have good distal targets so was not a good surgical candidate. After further discussions the patient was declining stent. We then had discussion with the patient and his family in further discussions and eventually the patient did agree to stenting and underwent successful stenting of his left circumflex and 1st diagonal. This resulted in good flow and no significant complications there was a very minor coronary dissection that did not appear to be bleeding or need any intervention. He was thereafter observed with increase activity and ongoing dialysis and he tolerated all this well. He had his Norvasc for blood pressure stopped and was started on some low-dose Coreg and carvedilol which she tolerated. He is unwilling at this point consider taking a statin. At this point with stable vital signs, no angina, no arrhythmia, no renal related issues the patient is felt stable for discharge to home. PENDING TEST RESULTS: None MEDICATION CHANGES: Addition of daily aspirin, 75 daily Plavix, low-dose of lisinopril, and Coreg Patient unwilling at this time to take statin FOLLOW-UP PLAN: 1 week in Cardiology Clinic Resume hemodialysis at his dialysis unit tomorrow Greater than 35 minutes bedside and care coordination time today
--- NOTE | 2018-08-12 07:05 | CPEKG ---
Test Reason : OPEN Blood Pressure : / mmHG Vent. Rate : 100 BPM Atrial Rate : 100 BPM P-R Int : 192 ms QRS Dur : 119 ms QT Int : 355 ms P-R-T Axes : 053 -26 093 degrees QTc Int : 458 ms Sinus tachycardia Probable left atrial enlargement Left ventricular hypertrophy Extensive anterior infarct, acute (LAD) Confirmed by Ramesh Medellin ([id number]) on 08/12/2018 7:05:08 AM Referred By: Confirmed By:Ramesh Medellin
== END 2018-08-09 15:16 | disposition home or self-care (01) | DRG 246 ==
LOC: EDUNIT# → F2N 08-06 00:01 → OBSVTOIN 08-08 11:07 → F2W 08-08 17:40
PROVIDERS: ADMIT Internal Medicine; ATTEND Internal Medicine
DX: I21.4 Non-ST elevation (NSTEMI) myocardial infarction (principal); I13.2 Hypertensive heart and chronic kidney disease with heart failure and with stage 5 chronic kidney disease, or end stage renal disease; N18.6 End stage renal disease; I50.22 Chronic systolic (congestive) heart failure; N39.0 Urinary tract infection, site not specified; I25.10 Atherosclerotic heart disease of native coronary artery without angina pectoris; F03.90 Unspecified dementia, unspecified severity, without behavioral disturbance, psychotic disturbance, mood disturbance, and anxiety; I95.9 Hypotension, unspecified; R41.0 Disorientation, unspecified; D63.1 Anemia in chronic kidney disease; G47.33 Obstructive sleep apnea (adult) (pediatric); E03.9 Hypothyroidism, unspecified; E87.6 Hypokalemia; Z99.2 Dependence on renal dialysis; Z86.718 Personal history of other venous thrombosis and embolism
CPT/HCPCS: 80305; 84481-90; 84484-PO; 85520-90; 92507-GN; 92523-GN; C1725; C1760; C1769; C1874; C1887; C9600; G0480; G9165-GN-CL; G9166-GN-CL; J0461; J0583; J0696; J1200; J1644; J2250; J3010; Q9967